=== PATIENT | male | born 1930 | race Caucasian/White ===

== ENCOUNTER 2017-10-18 00:22 | Observation (INO) | payer MEDICARE ==
[~2017-10-18] VITALS: Ht 170.2 cm; Wt 80.0 kg
[2017-10-18] VITALS (9 sets, daily range): BP systolic 134–173; BP diastolic 64–86; PULSE 63–114; RESP 16–20; TEMP 96.9–98.6; O2SAT 93–96
[~2017-10-18 00:22] MED LIST: CALA180T PO; HYDR12.56 PO; LISI40TA PO; PROS5TAB2 PO; PROT40TA PO; TERA10CA3 PO
[2017-10-18] MEDS ORDERED: FINA5TAB2 (02:04)
[2017-10-18] MEDS ORDERED: HYDR12.57 PO (02:04)
[2017-10-18] MEDS ORDERED: LISI40TA PO (02:04)
[2017-10-18] MEDS ORDERED: VERA120T3 PO (02:04)
[2017-10-18] MEDS ORDERED: TERA10CA3 PO (02:04)
[2017-10-18] MEDS ORDERED: SODIUM CHLORIDE 0.9% FLUSH 10 ML FLUSH IVF PRN (02:30)
[2017-10-18 03:13] LABS: AUTOMATED NEUTROPHIL # 7.4 TH/MM3 (1.8-7.7); BASOPHIL % 0.1 % (0.0-2.0); EOSINOPHIL # 0.1 TH/MM3 (0-0.4); EOSINOPHIL % 0.6 % (0.0-4.0); HEMATOCRIT 36.1 % (39.0-51.0); HEMOGLOBIN 12.3 GM/DL (13.0-17.0); LYMPH % 10.9 % (9.0-44.0); MEAN CELL VOLUME 90.7 FL (80.0-100.0); MEAN CORPUSCULAR HEMOGLOBIN 30.9 PG (27.0-34.0); MEAN CORPUSCULAR HGB CONC 34.1 % (32.0-36.0); MEAN PLATELET VOLUME 8.5 FL (7.0-11.0); MONO % 9.4 % (0.0-8.0); MONOCYTE # 0.9 TH/MM3 (0-0.9); PLATELET COUNT 243 TH/MM3 (150-450); RED BLOOD COUNT 3.98 MIL/MM3 (4.50-5.90); RED CELL DISTRIBUTION WIDTH 14.1 % (11.6-17.2); WHITE BLOOD COUNT 9.4 TH/MM3 (4.0-11.0)
[2017-10-18 03:26] LABS: INTERNATIONAL NORMALIZED RATIO 1.1 RATIO; PROTHROMBIN TIME - PATIENT 10.7 SEC (9.8-11.6)
[2017-10-18 03:27] LABS: BICARBONATE 26.9 MEQ/L (21.0-32.0); CALCIUM 8.8 MG/DL (8.5-10.1); CREATININE 1.07 MG/DL (0.60-1.30)
--- NOTE | 2017-10-18 03:31 | RADRPT ---
EXAM DATE/TIME: 10/18/2017 02:30 [facility] COMPARISON: No previous studies available for comparison. INDICATIONS : Shortness of breath. MEDICAL HISTORY : None. SURGICAL HISTORY : None. ENCOUNTER: Initial ACUITY: 1 day PAIN SCORE: 2/10 LOCATION: Bilateral chest FINDINGS: A single view of the chest demonstrates the lungs to be symmetrically aerated without evidence of mas s, infiltrate or effusion. The cardiomediastinal contours are unremarkable. Osseous structures are intact. CONCLUSION: No acute disease. Garret Ascencio MD on October 18, 2017 at 3:30 Board Certified Radiologist. This report was verified electronically.
[2017-10-18] MEDS ORDERED: IOHEXOL 350 MG/ML 10 ML VIAL (for RAD DIAG) IVCONTRAST ONE (04:00)
[2017-10-18] MEDS ORDERED: ONDANSETRON HCL 4 MG/2 ML VIAL IV PUSH ONE (04:15)
--- NOTE | 2017-10-18 04:26 | RADRPT ---
EXAM DATE/TIME: 10/18/2017 03:52 [facility] COMPARISON: No previous studies available for comparison. INDICATIONS : Abdomen pain IV CONTRAST: 100 cc Omnipaque 350 (iohexol) IV ORAL CONTRAST: No oral contrast ingested. RADIATION DOSE: 9.96 CTDIvol (mGy) MEDICAL HISTORY : Hypertension. Benign prostatic hyperplasia (BPH). SURGICAL HISTORY : Penile implant ENCOUNTER: Initial ACUITY: 1 day PAIN SCALE: 4/10 LOCATION: Bilateral abdomen TECHNIQUE: Volumetric scanning of the abdomen and pelvis was performed. Using automated exposure control and ad justment of the mA and/or kV according to patient size, radiation dose was kept as low as reasonably achievable to obtain optimal diagnostic quality images. DICOM format image data is available electro nically for review and comparison. FINDINGS: LOWER LUNGS: Bibasilar scarring. LIVER: Homogeneous density without lesion. There is no dilation of the biliary tree. No calcified gallston es. SPLEEN: Normal size without lesion. PANCREAS: Within normal limits. KIDNEYS: Normal in size and shape. There is no mass, stone or hydronephrosis. Left renal cyst. ADRENAL GLANDS: Within normal limits. VASCULAR: There is no aortic aneurysm. BOWEL/MESENTERY: Cyst of the sigmoid colon.. There is no free intraperitoneal air or fluid. ABDOMINAL WALL: Within normal limits. RETROPERITONEUM: There is no lymphadenopathy. BLADDER: No wall thickening or mass. REPRODUCTIVE: Penile prosthesis. INGUINAL: There is no lymphadenopathy or hernia. MUSCULOSKELETAL: Degenerative changes in left hip prosthesis. CONCLUSION: 1. Diverticulosis without diverticulitis. 2. Left renal cyst. 3. No acute inflammatory process. Garret Ascencio MD on October 18, 2017 at 4:22 Board Certified Radiologist. This report was verified electronically.
[2017-10-18] MEDS: SODIUM CHLOR 0.9% 1000 ML INJ 1,000 ML IV SCH ×2 (05:09→15:09)
[2017-10-18] MEDS ORDERED: ONDANSETRON HCL 4 MG/2 ML VIAL IV PUSH PRN (05:15)
[2017-10-18] MEDS ORDERED: SODIUM CHLORIDE 0.9% FLUSH 10 ML FLUSH IV FLUSH PRN (05:15)
--- NOTE | 2017-10-18 05:15 | PD ---
HPI Chief Complaint: GI Complaint Time Seen by Provider: 02:27 Travel History International Travel<30 days: No Contact w/Intl Traveler<30days: No Traveled to known affect area: No History of Present Illness HPI 87-year-old male presents to the emergency department by private transportation the care family for evaluation of rectal bleeding. Onset of symptoms at 1130 last evening. Patient has had several episodes subsequently with red blood per rectum tenesmus and flatus with red blood per rectum. No recent antibiotic use no pain no NSAID use and no anticoagulant therapy. No report of chest pain shortness of breath near syncope syncope or diaphoresis. Patient does have prior history of upper GI bleed from NSAID use approximately 10 years ago. PFSH Past Medical History Narrative Medical Arthritis hypertension BPH upper GI bleed penile implant knee and hip surgery; occasional alcohol use; nursing notes reviewed Arthritis: Yes Blood Disorders: No Cancer: No Diminished Hearing: No Endocrine: No Genitourinary: Yes (BPH) Hypertension: Yes Immune Disorder: No Implanted Vascular Access Dvce: Yes (penial implant) Neurologic: No Psychiatric: No Reproductive: No Respiratory: No Tetanus Vaccination: < 5 Years Influenza Vaccination: Yes Past Surgical History Genitourinary Surgery: Yes (TURP) Joint Replacement: Yes (HIP AND KNEE) Other Surgery: Yes (penial implant) Social History Alcohol Use: Yes (RARE SOCIAL- ON HOLIDAYS) Tobacco Use: No Substance Use: No Allergies-Medications (Allergen,Severity, Reaction): Coded Allergies: penicillin G (Unverified Allergy, Severe, THINKS HIS "THROAT SWELLS" LONG TIME AGO, 10/18/17) Reported Meds & Prescriptions Reported Meds & Active Scripts Active Reported Hydrochlorothiazide 12.5 Mg Cap 12.5 Mg PO DAILY Terazosin (Terazosin HCl) 10 Mg Cap 10 Mg PO HS Lisinopril 40 Mg Tab 40 Mg PO DAILY Verapamil (Verapamil HCl) 120 Mg Tab 180 Mg PO DAILY Finasteride 5 Mg Tab 5 Mg DAILY Do not crush. Review of Systems Except as stated in HPI: all other systems reviewed are Neg Physical Exam Narrative GENERAL: Well-developed well-nourished elderly male in no acute distress or respiratory distress SKIN: Warm and dry. HEAD: Normocephalic. EYES: No scleral icterus. No injection or drainage. NECK: Supple, trachea midline. No JVD or lymphadenopathy. CARDIOVASCULAR: Regular rate and rhythm without murmurs, gallops, or rubs. RESPIRATORY: Breath sounds equal bilaterally. No accessory muscle use. GASTROINTESTINAL: Abdomen soft, non-tender, nondistended. Rectal exam: Normal sphincter tone no fissure no prolapsed hemorrhoids normal sphincter tone no palpable rectal mass or hemorrhoids, red blood on exam glove heme positive MUSCULOSKELETAL: No cyanosis, or edema. BACK: Nontender without obvious deformity. No CVA tenderness. Data Data Last Documented VS Vital Signs Date Time Temp Pulse Resp B/P (MAP) Pulse Ox O2 Delivery O2 Flow Rate FiO2 10/18/17 02:04 88 16 168/77 (107) 95 Room Air 10/18/17 00:50 97.9 Orders Orders Basic Metabolic Panel (Bmp) (10/18/17 02:27) Complete Blood Count With Diff (10/18/17 02:27) Prothrombin Time / Inr (Pt) (10/18/17 02:27) Act Partial Throm Time (Ptt) (10/18/17 02:27) Type And Screen (10/18/17 02:27) Chest, Single Ap (10/18/17 02:27) Ecg Monitoring (10/18/17 02:27) Iv Access Insert/Monitor (10/18/17 02:27) Oximetry (10/18/17 02:27) Sodium Chloride 0.9% Flush (Ns Flush) (10/18/17 02:30) Orthostatic Vital Signs (10/18/17 02:27) Ct Abd/Pel W Iv Contrast(Rout) (10/18/17 ) Iohexol 350 Inj (Omnipaque 350 Inj) (10/18/17 04:00) Ondansetron Inj (Zofran Inj) (10/18/17 04:15) Admit Order (Ed Use Only) (10/18/17 ) Shank Carrier / Telemetry LORRIE.Q8H (10/18/17 05:10) Activity Oob With Assistance (10/18/17 05:10) Notify Dr: Other (10/18/17 05:10) Labs Laboratory Tests Test 10/18/17 02:40 White Blood Count 9.4 TH/MM3 Red Blood Count 3.98 MIL/MM3 Hemoglobin 12.3 GM/DL Hematocrit 36.1 % Mean Corpuscular Volume 90.7 FL Mean Corpuscular Hemoglobin 30.9 PG Mean Corpuscular Hemoglobin Concent 34.1 % Red Cell Distribution Width 14.1 % Platelet Count 243 TH/MM3 Mean Platelet Volume 8.5 FL Neutrophils (%) (Auto) 79.0 % Lymphocytes (%) (Auto) 10.9 % Monocytes (%) (Auto) 9.4 % Eosinophils (%) (Auto) 0.6 % Basophils (%) (Auto) 0.1 % Neutrophils # (Auto) 7.4 TH/MM3 Lymphocytes # (Auto) 1.0 TH/MM3 Monocytes # (Auto) 0.9 TH/MM3 Eosinophils # (Auto) 0.1 TH/MM3 Basophils # (Auto) 0.0 TH/MM3 CBC Comment DIFF FINAL Differential Comment Prothrombin Time 10.7 SEC Prothromb Time International Ratio 1.1 RATIO Activated Partial Thromboplast Time 27.5 SEC Blood Urea Nitrogen 24 MG/DL Creatinine 1.07 MG/DL Random Glucose 96 MG/DL Calcium Level 8.8 MG/DL Sodium Level 140 MEQ/L Potassium Level 3.9 MEQ/L Chloride Level 104 MEQ/L Carbon Dioxide Level 26.9 MEQ/L Anion Gap 9 MEQ/L Estimat Glomerular Filtration Rate 65 ML/MIN MDM Medical Decision Making Medical Screen Exam Complete: Yes Emergency Medical Condition: Yes Medical Record Reviewed: Yes Interpretation(s) Last Impressions Chest X-Ray 10/18/177 Signed Impressions: Service Date/Time: Wednesday, October 18, 2017 02:30 - CONCLUSION: No acute disease. Garret Ascencio MD Abdomen/Pelvis CT 10/18/17 0000 Signed Impressions: Service Date/Time: Wednesday, October 18, 2017 03:52 - CONCLUSION: 1. Diverticulosis without diverticulitis. 2. Left renal cyst. 3. No acute inflammatory process. Garret Ascencio MD CBC & BMP Diagram 10/18/17 02:40 Calcium Level 8.8 Vital Signs Date Time Temp Pulse Resp B/P (MAP) Pulse Ox O2 Delivery O2 Flow Rate FiO2 10/18/17 02:04 88 16 168/77 (107) 95 Room Air 10/18/17 00:50 97.9 90 16 134/64 (87) 95 Differential Diagnosis Rectal bleeding, internal hemorrhoids, polyp, mass, diverticulitis, colitis, intestinal AVM Narrative Course IV access obtained specimens collected and sent for resulting Imaging study ordered and results and reveals no acute process other than diverticulosis without diverticulitis Hemoglobin stable BUN and creatinine ratio not consistent with upper GI bleed suspect lower GI bleed Patient's case discussed with on-call medicine for observation admission for serial hemoglobins and GI consult as needed HemaPrompt Point of Care Internal Pos. & Neg. Controls: Passed Fecal Specimen Occult Blood: Positive Physician Communication Physician Communication Discussed with Dr. Shearer Diagnosis Primary Impression: Rectal bleeding Admitting Information Admitting Physician Requests: Observation Inés Rangel MD Oct 18, 2017 05:15
[2017-10-18] MEDS: FINASTERIDE 5 MG TAB PO SCH (08:22)
[2017-10-18] MEDS: SODIUM CHLORIDE 0.9% FLUSH 10 ML FLUSH IV FLUSH SCH ×2 (08:23→20:22)
[2017-10-18] MEDS: PANTOPRAZOLE SODIUM 40 MG VIAL IV PUSH SCH (08:23)
[2017-10-18] MEDS: LISINOPRIL 20 MG TAB PO SCH (08:23)
[2017-10-18] MEDS: HYDROCHLOROTHIAZIDE 12.5 MG CAP PO SCH (08:23)
[2017-10-18] MEDS: VERAPAMIL HCL 180 MG SUSTAINED RELEASE TAB PO SCH (08:38)
[2017-10-18 10:30] LABS: HEMATOCRIT 35.1 % (39.0-51.0); HEMOGLOBIN 11.9 GM/DL (13.0-17.0)
--- NOTE | 2017-10-18 11:03 | PD.CONS ---
HPI History of Present Illness This is a 87 year old male with hx gastric ulcer, GIB who presented for BRBPR. He started having bloody BM yesterday, bright red blood mixed in with soft stool. Denies abd pain, n/v, weight loss, black tarry stool. His last EGD and colonoscopy was [address] Lopes with finding clean based gastric ulcer; fair prep, diverticulosis, hemorrhoids. He is not on any blood thinners. Denies NSAID use. (Colleen Villa) PFSH Past Medical History UGIB HTN BPH Past Surgical History knee replacment hip replacement prostate surgery penile implant (Colleen Villa) Coded Allergies: penicillin G (Unverified Allergy, Severe, THINKS HIS "THROAT SWELLS" LONG TIME AGO, 10/18/17) Family History denies Social History denies toxic habits (Colleen Villa) Review of Systems Constitutional: DENIES: Weight loss Endocrine: DENIES: Polydipsia Eyes: DENIES: Blurred vision Ears, nose, mouth, throat: DENIES: Hearing loss Respiratory: DENIES: Cough Cardiovascular: DENIES: Chest pain Gastrointestinal: COMPLAINS OF: Bloody stools, DENIES: Abdominal pain, Black stools, Nausea, Vomiting Genitourinary: DENIES: Hematuria Musculoskeletal: DENIES: Muscle aches Integumentary: DENIES: Jaundice Hematologic/lymphatic: DENIES: Bruising Immunologic/allergic: DENIES: Eczema Neurologic: DENIES: Abnormal gait (ambulates with cane) Psychiatric: DENIES: Confusion (Colleen Villa) GI Exam Vitals I&O Vital Signs Date Time Temp Pulse Resp B/P (MAP) Pulse Ox O2 Delivery O2 Flow Rate FiO2 10/18/17 08:00 96.9 114 18 173/86 (115) 96 10/18/17 06:38 96.9 114 18 173/86 (115) 96 10/18/17 06:14 10/18/17 02:04 88 16 168/77 (107) 95 Room Air 10/18/17 00:50 97.9 90 16 134/64 (87) 95 Imaging Last Impressions Chest X-Ray 10/18/17 8198 Signed Impressions: Service Date/Time: Monday, October 18, 2017 02:30 - CONCLUSION: No acute disease. Garret Ascencio MD Abdomen/Pelvis CT 10/18/17 0000 Signed Impressions: Service Date/Time: Wednesday, October 18, 2017 03:52 - CONCLUSION: 1. Diverticulosis without diverticulitis. 2. Left renal cyst. 3. No acute inflammatory process. Garret Ascencio MD Laboratory Test 10/18/17 02:40 10/18/17 10:04 White Blood Count 9.4 TH/MM3 Red Blood Count 3.98 MIL/MM3 Hemoglobin 12.3 GM/DL 11.9 GM/DL Hematocrit 36.1 % 35.1 % Mean Corpuscular Volume 90.7 FL Mean Corpuscular Hemoglobin 30.9 PG Mean Corpuscular Hemoglobin Concent 34.1 % Red Cell Distribution Width 14.1 % Platelet Count 243 TH/MM3 Mean Platelet Volume 8.5 FL Neutrophils (%) (Auto) 79.0 % Lymphocytes (%) (Auto) 10.9 % Monocytes (%) (Auto) 9.4 % Eosinophils (%) (Auto) 0.6 % Basophils (%) (Auto) 0.1 % Neutrophils # (Auto) 7.4 TH/MM3 Lymphocytes # (Auto) 1.0 TH/MM3 Monocytes # (Auto) 0.9 TH/MM3 Eosinophils # (Auto) 0.1 TH/MM3 Basophils # (Auto) 0.0 TH/MM3 CBC Comment DIFF FINAL Differential Comment Prothrombin Time 10.7 SEC Prothromb Time International Ratio 1.1 RATIO Activated Partial Thromboplast Time 27.5 SEC Blood Urea Nitrogen 24 MG/DL Creatinine 1.07 MG/DL Random Glucose 96 MG/DL Calcium Level 8.8 MG/DL Sodium Level 140 MEQ/L Potassium Level 3.9 MEQ/L Chloride Level 104 MEQ/L Carbon Dioxide Level 26.9 MEQ/L Anion Gap 9 MEQ/L Estimat Glomerular Filtration Rate 65 ML/MIN Physical Examination HEENT: PERRL; normocephalic; atraumatic; no jaundice. CHEST: CTA, diminished CARDIAC: Regular rate and rhythm with no murmur gallop or rubs. ABDOMEN: Soft, nondistended, nontender; no hepatosplenomegaly; bowel sounds are present in all four quadrants. EXTREMITIES: No clubbing, cyanosis, mild BLE edema SKIN: Normal; no rash; no jaundice. INJECTION MOLDING PROCESS TECHNICIAN: No focal deficits; alert and oriented times three. (Colleen Villa) Assessment and Plan Plan ASSESSMENT - hematochezia - LGIB. very mild anemia hgb 12.3. prior hx GIB from bleeding ulcer, had EGD and colonoscopy 2007 with finding clean based ulcer, diverticulosis. could be diverticular bleed vs hemorrhoids vs other. PLAN - colonoscopy in am - clear liquids this afternoon - obtain consent - golytely - NPO after MN - notify GI of active bleeding - monitor HH - further recs to follow pt seen by myself and DR lyles and this note is on his behalf (Colleen Villa) Plan Patient was seen and examined, agree with above-noted, possible diverticular bleed, cannot rule out other reasons such as malignancy, plan for colonoscopy in a.m. (Leonid Lyles MD) Colleen Villa Oct 18, 2017 11:03 Leonid Lyles MD Oct 18, 2017 13:06
[2017-10-18 15:27] LABS: HEMATOCRIT 34.1 % (39.0-51.0); HEMOGLOBIN 11.6 GM/DL (13.0-17.0)
[2017-10-18] MEDS ORDERED: PEG (High)/E-LYTE SOLN 4000 ML BTL PO ONE (16:15)
--- NOTE | 2017-10-18 18:43 | HHI.HP ---
HPI Service [facility] Hospitalists Primary Care Physician Tania Johnson MD Admission Diagnosis rectal bleeding Diagnoses: Chief Complaint: Rectal bleeding Travel History International Travel<30 Days: No Contact w/Intl Traveler <30 Da: No Traveled to Known Affected Are: No History of Present Illness This is an 87-year-old male with past medical history of gastric ulcer, GI bleed who presents to [facility] with complaints of bright red blood per rectum. The patient states he had started having bloody bowel movements yesterday, bright red blood mixed in with stool. The patient denies abdominal pain, nausea, vomiting, dark tarry stools. The patient has had an EGD and colon[place] [address] Anastacio bhatia with findings of gastric ulcer, diverticulosis, hemorrhoids. Patient otherwise denies any chest pain, shortness of breath, fevers, chills. Review of Systems As per HPI, other systems reviewed by me and negative. Past Family Social History Past Medical History UGIB HTN BPH Past Surgical History knee replacment hip replacement prostate surgery penile implant Reported Medications Reported Meds & Active Scripts Active Reported Hydrochlorothiazide 12.5 Mg Cap 12.5 Mg PO DAILY Terazosin (Terazosin HCl) 10 Mg Cap 10 Mg PO HS Lisinopril 40 Mg Tab 40 Mg PO DAILY Verapamil (Verapamil HCl) 120 Mg Tab 180 Mg PO DAILY Finasteride 5 Mg Tab 5 Mg DAILY Do not crush. Allergies: Coded Allergies: penicillin G (Unverified Allergy, Severe, THINKS HIS "THROAT SWELLS" LONG TIME AGO, 10/18/17) Active Ordered Medications Current Medications Medications (Trade) Dose Ordered Sig/Sunni Route Start Time Stop Time Status Last Admin Sodium Chloride 1,000 ml @ 100 mls/hr Q10H IV 10/18/17 05:09 10/18/17 15:09 (NS Flush) 2 ml UNSCH PRN IV FLUSH 10/18/17 05:15 (NS Flush) 2 ml BID IV FLUSH 10/18/17 09:00 10/18/17 08:23 (Zofran Inj) 4 mg Q6H PRN IV PUSH 10/18/17 05:15 (Protonix Inj) 40 mg DAILY IV PUSH 10/18/17 09:00 10/18/17 08:23 (Proscar) 5 mg DAILY PO 10/18/17 09:00 10/18/17 08:22 (Microzide) 12.5 mg DAILY PO 10/18/17 09:00 10/18/17 08:23 (Hytrin) 10 mg HS PO 10/18/17 21:00 (Isoptin Sr) 180 mg DAILY PO 10/18/17 09:00 10/18/17 08:38 (Prinivil) 40 mg DAILY PO 10/18/17 09:00 10/18/17 08:23 Family History denies Social History denies toxic habits Physical Exam Vital Signs Vital Signs Date Time Temp Pulse Resp B/P (MAP) Pulse Ox O2 Delivery O2 Flow Rate FiO2 10/18/17 16:57 63 10/18/17 15:32 98.4 84 16 161/80 (107) 95 10/18/17 10:56 98.3 80 20 152/70 (97) 94 10/18/17 08:00 96.9 114 18 173/86 (115) 96 10/18/17 06:38 96.9 114 18 173/86 (115) 96 10/18/17 06:14 10/18/17 02:04 88 16 168/77 (107) 95 Room Air 10/18/17 00:50 97.9 90 16 134/64 (87) 95 Physical Exam GENERAL: This is a well-nourished, well-developed patient, in no apparent distress. SKIN: No rashes, ecchymoses or lesions. Cool and dry. HEAD: Atraumatic. Normocephalic. No temporal or scalp tenderness. EYES: Pupils equal round and reactive. Extraocular motions intact. No scleral icterus. No injection or drainage. ENT: Nose without bleeding, purulent drainage or septal hematoma. Throat without erythema, tonsillar hypertrophy or exudate. Uvula midline. Airway patent. NECK: Trachea midline. No JVD or lymphadenopathy. Supple, nontender, no meningeal signs. CARDIOVASCULAR: Regular rate and rhythm without murmurs, gallops, or rubs. RESPIRATORY: Clear to auscultation. Breath sounds equal bilaterally. No wheezes , rales, or rhonchi. GASTROINTESTINAL: Abdomen soft, non-tender, nondistended. No hepato-splenomegaly , or palpable masses. No guarding. MUSCULOSKELETAL: Extremities without clubbing, cyanosis, or edema. No joint tenderness, effusion, or edema noted. No calf tenderness. Negative Homans sign bilaterally. NEUROLOGICAL: Awake and alert. Cranial nerves II through XII intact. Motor and sensory grossly within normal limits. Five out of 5 muscle strength in all muscle groups. Normal speech. Laboratory Laboratory Tests Test 10/18/17 02:40 10/18/17 10:04 10/18/17 14:43 White Blood Count 9.4 Red Blood Count 3.98 Hemoglobin 12.3 11.9 11.6 Hematocrit 36.1 35.1 34.1 Mean Corpuscular Volume 90.7 Mean Corpuscular Hemoglobin 30.9 Mean Corpuscular Hemoglobin Concent 34.1 Red Cell Distribution Width 14.1 Platelet Count 243 Mean Platelet Volume 8.5 Neutrophils (%) (Auto) 79.0 Lymphocytes (%) (Auto) 10.9 Monocytes (%) (Auto) 9.4 Eosinophils (%) (Auto) 0.6 Basophils (%) (Auto) 0.1 Neutrophils # (Auto) 7.4 Lymphocytes # (Auto) 1.0 Monocytes # (Auto) 0.9 Eosinophils # (Auto) 0.1 Basophils # (Auto) 0.0 CBC Comment DIFF FINAL Differential Comment Prothrombin Time 10.7 Prothromb Time International Ratio 1.1 Activated Partial Thromboplast Time 27.5 Blood Urea Nitrogen 24 Creatinine 1.07 Random Glucose 96 Calcium Level 8.8 Sodium Level 140 Potassium Level 3.9 Chloride Level 104 Carbon Dioxide Level 26.9 Anion Gap 9 Estimat Glomerular Filtration Rate 65 Result Diagram: 10/18/17 1443 10/18/17 0240 Imaging Last Impressions Chest X-Ray 10/18/17 0227 Signed Impressions: Service Date/Time: Wednesday, October 18, 2017 02:30 - CONCLUSION: No acute disease. Garret Ascencio MD Abdomen/Pelvis CT 10/18/17 0000 Signed Impressions: Service Date/Time: Wednesday, October 18, 2017 03:52 - CONCLUSION: 1. Diverticulosis without diverticulitis. 2. Left renal cyst. 3. No acute inflammatory process. Garret F. Tocci, MD Caprini VTE Risk Assessment Caprini VTE Risk Assessment: Mod/High Risk (score >= 2) VTE Pharm Contraindication: Active bleeding Caprini Risk Assessment Model Point Value = 1 Point Value = 2 Point Value = 3 Point Value = 5 Age 41-60 Minor surgery BMI > 25 kg/m2 Swollen legs Varicose veins or History of unexplained or recurrent spontaneous Oral contraceptives or hormone replacement Sepsis (< 1 month) Serious lung disease, including pneumonia (< 1 month) Abnormal pulmonary function Acute myocardial infarction Congestive heart failure (< 1 month) History of inflammatory bowel disease Medical patient at bed rest Age 61-74 Arthroscopic surgery Major open surgery (> 45 min) Laparoscopic surgery (> 45 min) Malignancy Confined to bed (> 72 hours) Immobilizing plaster cast Central venous access Age >= 75 History of VTE Family history of VTE Factor V Leiden Prothrombin [id number] Lupus anticoagulant Anticardiolipin antibodies Elevated serum homocysteine Heparin-induced thrombocytopenia Other congenital or acquired thrombophilia Stroke (< 1 month) Elective arthroplasty Hip, pelvis, or leg fracture Acute spinal cord injury (< 1 month) Prophylaxis Regimen Total Risk Factor Score Risk Level Prophylaxis Regimen 0-1 Low Early ambulation 2 Moderate Order ONE of the following: *Sequential Compression Device (SCD) *Heparin 5000 units SQ BID 3-4 Higher Order ONE of the following medications: *Heparin 5000 units SQ TID *Enoxaparin/Lovenox 40 mg SQ daily (WT < 150 kg, CrCl > 30 mL/min) *Enoxaparin/Lovenox 30 mg SQ daily (WT < 150 kg, CrCl > 10-29 mL/min) *Enoxaparin/Lovenox 30 mg SQ BID (WT < 150 kg, CrCl > 30 mL/min) AND/OR *Sequential Compression Device (SCD) 5 or more Highest Order ONE of the following medications: *Heparin 5000 units SQ TID (Preferred with Epidurals) *Enoxaparin/Lovenox 40 mg SQ daily (WT < 150 kg, CrCl > 30 mL/min) *Enoxaparin/Lovenox 30 mg SQ daily (WT < 150 kg, CrCl > 10-29 mL/min) *Enoxaparin/Lovenox 30 mg SQ BID (WT < 150 kg, CrCl > 30 mL/min) AND *Sequential Compression Device (SCD) Assessment and Plan Problem List: (1) Rectal bleeding ICD Code: K62.5 - Hemorrhage of anus and rectum Status: Acute (2) BPH (benign prostatic hyperplasia) ICD Code: N40.0 - Benign prostatic hyperplasia without lower urinary tract symptoms (3) HTN (hypertension) ICD Code: I10 - Essential (primary) hypertension Assessment and Plan Place the patient observation Hemoglobin 12.0 admission dropped to 11.9 and then to 11.6. Continue to monitor CBC. GI consulted. Appreciate recommendations Clear liquids today, colonoscopy in a.m. AP after midnight. Please notify GI for active bleeding. Blood pressure seems to be stable. Continue home antihypertensive medications. Continue Flomax for BPH. DVT prophylaxis with SCDs, avoid chemoprophylaxis given active bleeding. Code Status Full code Discussed Condition With Patient, RN. Dong Pineda MD Oct 18, 2017 18:43
[2017-10-18 20:55] LABS: HEMATOCRIT 32.7 % (39.0-51.0); HEMOGLOBIN 11.3 GM/DL (13.0-17.0)
[2017-10-18] MEDS ORDERED: TERAZOSIN HCL 5 MG CAP PO SCH (21:00)
--- NOTE | 2017-10-18 21:17 | EKG ---
Date Performed: 10/18/2017 Time Performed: 02:04:31 PTAGE: 87 years EKG: Sinus rhythm POSSIBLE RIGHT VENTRICULAR HYPERTROPHY PROBABLE SEPTAL MYOCARDIAL INFARCTION PROBABLE INFERIOR MYOCA RDIAL INFARCTION ABNORMAL ECG NO PREVIOUS TRACING DOCTOR: Santino He Interpretating Date/Time 10/18/2017 21:16:24
[2017-10-19] VITALS (9 sets, daily range): BP systolic 124–155; BP diastolic 58–71; PULSE 71–90; RESP 16–20; TEMP 97.9–98.9; O2SAT 94–95
[2017-10-19] MEDS ORDERED: CHLORHEXIDINE GLUCONATE 2 % 1 PACK (2 CLOTHS) TOPICAL PRN (00:30)
[2017-10-19] MEDS ORDERED: POVIDONE IODINE 5% (ANTISEPSIS KIT) 4 APPLICATIONS EACH NARE PRN (00:30)
[2017-10-19] MEDS ORDERED: METOPROLOL TARTRATE 25 MG TAB PO PRN (00:30)
[2017-10-19] MEDS ORDERED: SODIUM CHLORID 0.9% 500 ML IV PRN (00:30)
[2017-10-19] MEDS ORDERED: LACTATED RINGER'S 1000 ML IV PRN (00:30)
[2017-10-19] MEDS: SODIUM CHLOR 0.9% 1000 ML INJ 1,000 ML IV SCH ×2 (00:40→11:08)
[2017-10-19 03:32] LABS: AUTOMATED NEUTROPHIL # 5.3 TH/MM3 (1.8-7.7); BASOPHIL % 0.1 % (0.0-2.0); EOSINOPHIL # 0.1 TH/MM3 (0-0.4); EOSINOPHIL % 1.7 % (0.0-4.0); HEMATOCRIT 31.9 % (39.0-51.0); HEMOGLOBIN 10.9 GM/DL (13.0-17.0); LYMPH % 14.2 % (9.0-44.0); MEAN CORPUSCULAR HEMOGLOBIN 30.9 PG (27.0-34.0); MEAN CORPUSCULAR HGB CONC 34.3 % (32.0-36.0); MONO % 10.7 % (0.0-8.0); MONOCYTE # 0.8 TH/MM3 (0-0.9); NEUT % 73.3 % (16.0-70.0); PLATELET COUNT 228 TH/MM3 (150-450); RED BLOOD COUNT 3.55 MIL/MM3 (4.50-5.90); RED CELL DISTRIBUTION WIDTH 13.9 % (11.6-17.2); WHITE BLOOD COUNT 7.2 TH/MM3 (4.0-11.0)
[2017-10-19 04:11] LABS: BICARBONATE 28.2 MEQ/L (21.0-32.0); CALCIUM 8.3 MG/DL (8.5-10.1); CREATININE 0.86 MG/DL (0.60-1.30)
[2017-10-19] MEDS: PANTOPRAZOLE SODIUM 40 MG VIAL IV PUSH SCH (08:16)
[2017-10-19] MEDS: FINASTERIDE 5 MG TAB PO SCH (08:16)
[2017-10-19] MEDS: SODIUM CHLORIDE 0.9% FLUSH 10 ML FLUSH IV FLUSH SCH (08:16)
[2017-10-19] MEDS: VERAPAMIL HCL 180 MG SUSTAINED RELEASE TAB PO SCH (08:17)
[2017-10-19] MEDS: HYDROCHLOROTHIAZIDE 12.5 MG CAP PO SCH (08:17)
[2017-10-19] MEDS: LISINOPRIL 20 MG TAB PO SCH (08:17)
--- NOTE | 2017-10-19 10:24 | PD.PROCEDR ---
GI Procedure PROCEDURE PERFORMED Colonoscopy with biopsy INDICATION FOR PROCEDURE Rectal bleeding PROCEDURE: The procedure, risks and benefits were discussed with Mr. Fraire and informed consent was obtained. Anesthesia sedated him with Diprivan. He was placed in the left lateral decubitus position. Colonoscopy: The Pentax videoscope was introduced through the rectum and advanced to cecum. Retroflexion was performed in the rectum. Colonic prep was fair for the most part except the cecum and right colon where patient has some solid stool may interfere with the vision of polyps ESTIMATED BLOOD LOSS: None SPECIMENS REMOVED: Sigmoid colon COMPLICATIONS: None IMPRESSION: Particular disease throughout the colon Internal hemorrhoid Ischemic colon with ulceration in the descending colon possible related to constipation biopsy was done I talked to the radiologist about the patient's CT scan he stated that the patient had some vascular disease but nothing significant that can be treated so most likely ischemia related to straining and ischemia PLAN: Clear liquid Await biopsy results Colonoscopy in 1-2 month Avoid constipation and straining Leonid Lyles MD Oct 19, 2017 10:24
--- NOTE | 2017-10-19 10:25 | HHI.GIFU ---
Subjective Remarks Patient laying in bed comfortably, deny any constipation or abdominal pain or any more rectal bleeding, tolerated prep Objective Vitals I&O Vital Signs Date Time Temp Pulse Resp B/P (MAP) Pulse Ox O2 Delivery O2 Flow Rate FiO2 10/19/17 10:00 97.6 78 18 110/57 (74) 96 10/19/17 07:19 98.4 90 16 150/70 (96) 95 10/19/17 04:20 88 10/19/17 03:49 98.9 76 18 132/64 (86) 94 10/19/17 00:23 79 10/19/17 00:06 98.5 78 17 124/58 (80) 95 10/18/17 20:00 94 10/18/17 19:58 98.6 85 17 155/71 (99) 93 10/18/17 16:57 63 10/18/17 15:32 98.4 84 16 161/80 (107) 95 10/18/17 10:56 98.3 80 20 152/70 (97) 94 I/O 10/18/17 10/18/17 10/18/17 10/19/17 10/19/17 10/19/17 07:00 15:00 23:00 07:00 15:00 23:00 Intake Total 1950 ml 300 ml Output Total 400 ml Balance 1550 ml 300 ml Intake Oral 750 ml IV Total 1200 ml Other 300 ml Output Urine Total 400 ml # Voids 1 Laboratory Laboratory Tests Test 10/18/17 14:43 10/18/17 19:45 10/19/17 03:14 Hemoglobin 11.6 11.3 10.9 Hematocrit 34.1 32.7 31.9 White Blood Count 7.2 Red Blood Count 3.55 Mean Corpuscular Volume 90.0 Mean Corpuscular Hemoglobin 30.9 Mean Corpuscular Hemoglobin Concent 34.3 Red Cell Distribution Width 13.9 Platelet Count 228 Mean Platelet Volume 8.0 Neutrophils (%) (Auto) 73.3 Lymphocytes (%) (Auto) 14.2 Monocytes (%) (Auto) 10.7 Eosinophils (%) (Auto) 1.7 Basophils (%) (Auto) 0.1 Neutrophils # (Auto) 5.3 Lymphocytes # (Auto) 1.0 Monocytes # (Auto) 0.8 Eosinophils # (Auto) 0.1 Basophils # (Auto) 0.0 CBC Comment DIFF FINAL Differential Comment Blood Urea Nitrogen 18 Creatinine 0.86 Random Glucose 93 Calcium Level 8.3 Sodium Level 145 Potassium Level 3.6 Chloride Level 110 Carbon Dioxide Level 28.2 Anion Gap 7 Estimat Glomerular Filtration Rate 84 Physical Exam HEENT: Pupils round and reactive to light; normocephalic; atraumatic; no jaundice. Throat is clear. NECK: Neck is supple, no JVD, no lymphadenopathy. CHEST: Chest is clear to auscultation and percussion. CARDIAC: Regular rate and rhythm with no murmur gallop or rubs. ABDOMEN: Soft, nondistended, nontender; no hepatosplenomegaly; bowel sounds are present in all four quadrants. EXTREMITIES: No clubbing, cyanosis, or edema. SKIN: Normal; no rash; no jaundice. CHILD PROTECTIVE SERVICES SPECIALIST: No focal deficits; alert and oriented times three. Assessment and Plan Plan Patient was seen and examined, patient is doing okay, no active bleeding, hemoglobin stable, no more complaint, had colonoscopy today IMPRESSION: Particular disease throughout the colon Internal hemorrhoid Ischemic colon with ulceration in the descending colon possible related to constipation biopsy was done I talked to the radiologist about the patient's CT scan he stated that the patient had some vascular disease but nothing significant that can be treated so most likely ischemia related to straining and ischemia PLAN: Clear liquid Await biopsy results Colonoscopy in 1-2 month Avoid constipation and straining Leonid Lyles MD Oct 19, 2017 10:25
--- NOTE | 2017-10-19 14:21 | PD.PN.STU ---
Subjective Remarks Patient reports resolution of his blood per rectum. His last bowel movement this morning was normal per report. His last bloody bm was yesterday. Feels he is ready to go home. denies shortness of breath, chest pain, dizziness, light headedness, or fatigue. Objective Vitals Vital Signs Date Time Temp Pulse Resp B/P (MAP) Pulse Ox O2 Delivery O2 Flow Rate FiO2 10/19/17 10:57 97.9 83 16 153/71 (98) 95 10/19/17 10:41 78 10/19/17 10:00 97.6 78 18 110/57 (74) 96 10/19/17 07:19 98.4 90 16 150/70 (96) 95 10/19/17 04:20 88 10/19/17 03:49 98.9 76 18 132/64 (86) 94 10/19/17 00:23 79 10/19/17 00:06 98.5 78 17 124/58 (80) 95 10/18/17 20:00 94 10/18/17 19:58 98.6 85 17 155/71 (99) 93 10/18/17 16:57 63 10/18/17 15:32 98.4 84 16 161/80 (107) 95 I/O 10/18/17 10/18/17 10/18/17 10/19/17 10/19/17 10/19/17 07:00 15:00 23:00 07:00 15:00 23:00 Intake Total 1950 ml 300 ml Output Total 400 ml Balance 1550 ml 300 ml Intake Oral 750 ml IV Total 1200 ml Other 300 ml Output Urine Total 400 ml # Voids 1 3 # Bowel Movements 1 Result Diagram: 10/19/174 10/19/174 Other Results Laboratory Tests Test 10/18/17 02:40 10/18/17 10:04 10/18/17 14:43 10/18/17 19:45 Red Blood Count 3.98 MIL/MM3 (4.50-5.90) Hemoglobin 12.3 GM/DL (13.0-17.0) 11.9 GM/DL (13.0-17.0) 11.6 GM/DL (13.0-17.0) 11.3 GM/DL (13.0-17.0) Hematocrit 36.1 % (39.0-51.0) 35.1 % (39.0-51.0) 34.1 % (39.0-51.0) 32.7 % (39.0-51.0) Neutrophils (%) (Auto) 79.0 % (16.0-70.0) Monocytes (%) (Auto) 9.4 % (0.0-8.0) Blood Urea Nitrogen 24 MG/DL (7-18) Estimat Glomerular Filtration Rate 65 ML/MIN (>89) Test 10/19/17 03:14 Red Blood Count 3.55 MIL/MM3 (4.50-5.90) Hemoglobin 10.9 GM/DL (13.0-17.0) Hematocrit 31.9 % (39.0-51.0) Neutrophils (%) (Auto) 73.3 % (16.0-70.0) Monocytes (%) (Auto) 10.7 % (0.0-8.0) Calcium Level 8.3 MG/DL (8.5-10.1) Chloride Level 110 MEQ/L (98-107) Estimat Glomerular Filtration Rate 84 ML/MIN (>89) Objective Remarks No acute distress. Regular rate and rhythm, no gallops or murmurs. Lungs clear to auscultation bilaterally throughout with no rhonchi, wheezes or rales. Abdomen non-tender, non-distended. A/P Assessment and Plan Rectal bleeding - resolved. Hemoglobin still trending downward at 10.9. Colonoscopy found no active bleeding. Per GI report he had extensive diverticular disease, internal hemorrhoids and some possible signs of ischemic colon.Biopsy taken. Will follow-up with GI as out patient. Discharge with iron supplementation and follow up with GI. Discharge Planning Fernanda Garza M3 Oct 19, 2017 14:21
[2017-10-19] MEDS ORDERED: FERR325T20 PO (15:04)
--- NOTE | 2017-10-19 15:05 | HHI.DCPOC ---
Discharge Care Plan Diagnosis: (1) Anemia (2) Rectal bleeding (3) HTN (hypertension) (4) BPH (benign prostatic hyperplasia) Goals to Promote Your Health * To prevent worsening of your condition and complications * To maintain your health at the optimal level Directions to Meet Your Goals Take your medications as prescribed Follow your dietary instruction Follow activity as directed Keep your appointments as scheduled Take your immunizations and boosters as scheduled If your symptoms worsen call your PCP, if no PCP go to Urgent Care Center or Emergency Room Smoking is Dangerous to Your Health. Avoid second hand smoke Call the 24-hour hour crisis hotline for domestic abuse at Dong Pineda MD Oct 19, 2017 15:05
[2017-10-19] MEDS ORDERED: PERI PO (15:12)
--- NOTE | 2017-10-19 15:17 | HHI.DS ---
Discharge Summary Admission Date Oct 18, 2017 at 05:11 Discharge Date: Oct 19, 2017 Admitting Diagnosis rectal bleeding (1) Rectal bleeding ICD Code: K62.5 - Hemorrhage of anus and rectum Diagnosis: Principal Status: Acute (2) BPH (benign prostatic hyperplasia) ICD Code: N40.0 - Benign prostatic hyperplasia without lower urinary tract symptoms Diagnosis: Secondary (3) HTN (hypertension) ICD Code: I10 - Essential (primary) hypertension Diagnosis: Secondary (4) Anemia ICD Code: D64.9 - Anemia, unspecified Diagnosis: Principal Status: Acute Procedures none Brief History - From Admission This is an 87-year-old male with past medical history of gastric ulcer, GI bleed who presents to [facility] with complaints of bright red blood per rectum. The patient states he had started having bloody bowel movements yesterday, bright red blood mixed in with stool. The patient denies abdominal pain, nausea, vomiting, dark tarry stools. The patient has had an EGD and colonoscopy [place] [address] Anastacio bhatia with findings of gastric ulcer, diverticulosis, hemorrhoids. Patient otherwise denies any chest pain, shortness of breath, fevers, chills. CBC/BMP: 10/19/17 0314 10/19/17 0314 Significant Findings Laboratory Tests Test 10/18/17 02:40 10/18/17 10:04 10/18/17 14:43 10/18/17 19:45 Red Blood Count 3.98 MIL/MM3 (4.50-5.90) Hemoglobin 12.3 GM/DL (13.0-17.0) 11.9 GM/DL (13.0-17.0) 11.6 GM/DL (13.0-17.0) 11.3 GM/DL (13.0-17.0) Hematocrit 36.1 % (39.0-51.0) 35.1 % (39.0-51.0) 34.1 % (39.0-51.0) 32.7 % (39.0-51.0) Neutrophils (%) (Auto) 79.0 % (16.0-70.0) Monocytes (%) (Auto) 9.4 % (0.0-8.0) Blood Urea Nitrogen 24 MG/DL (7-18) Estimat Glomerular Filtration Rate 65 ML/MIN (>89) Test 10/19/17 03:14 Red Blood Count 3.55 MIL/MM3 (4.50-5.90) Hemoglobin 10.9 GM/DL (13.0-17.0) Hematocrit 31.9 % (39.0-51.0) Neutrophils (%) (Auto) 73.3 % (16.0-70.0) Monocytes (%) (Auto) 10.7 % (0.0-8.0) Calcium Level 8.3 MG/DL (8.5-10.1) Chloride Level 110 MEQ/L (98-107) Estimat Glomerular Filtration Rate 84 ML/MIN (>89) Imaging Last Impressions Chest X-Ray 10/18/17 0227 Signed Impressions: Service Date/Time: Wednesday, October 18, 2017 02:30 - CONCLUSION: No acute disease. Garret Ascencio MD Abdomen/Pelvis CT 10/18/17 0000 Signed Impressions: Service Date/Time: Wednesday, October 18, 2017 03:52 - CONCLUSION: 1. Diverticulosis without diverticulitis. 2. Left renal cyst. 3. No acute inflammatory process. Garret Ascencio MD PE at Discharge AAox3 Clear lungs BL S1s2 RRR, no MRg abdomen soft, nt, nd, positive bowel sounds no edema in lower extremities Pt update on day of discharge The patient is status post colonoscopy. Denies abdominal pain, nausea, vomiting. Denies chest pain or shortness of breath. Vital signs stable. Hospital Course The patient was placed on outpatient observation, hemoglobin was 12 with admission trending down to 11.9 and 10.9. However rectal bleeding resolved. GI consulted. Patient was placed on clear liquids and taken for colonoscopy in the morning of 10/19. Colonoscopy showed internal hemorrhoids, ischemic colon with ulceration in the ascending colon possibly related to constipation. Biopsy was taken. Pathology results not available upon discharge. Dr. Lyles spoke to the radiologist about the patient's CT scan and he stated that the patient had some vascular disease but nothing significant that can be treated so most likely ischemia was related to straining. Dr. Lyles recommended outpatient follow-up repeat colonoscopy in 1-2 months. The patient was started on senna Colace to avoid constipation and straining. Patient was placed on clear liquid diet. Patient discharge with soft diet and in instructed to advance it as tolerated. The patient was also started on ferrous sulfate for acute and chronic posthemorrhagic anemia. Pt Condition on Discharge: Good Discharge Disposition: Discharge Home Discharge Time: <= 30 minutes Discharge Instructions DIET: Follow Instructions for: Soft Diet Additional Diet Instructions: advance diet as tolerated Activities you can perform: Regular-No Restrictions Follow up Referrals: Gastroenterology - 2 Weeks New Medications: Ferrous Sulfate (Ferosul) 325 Mg (65 Mg Iron) Tablet 325 MG PO BID@12,17 for anemia, #62 TAB Sennosides-Docusate Sodium (Gnp Senna Plus 8.6-50 mg) 8.6 Mg-50 Mg Tab 2 TAB PO DAILY for prevent constipation, #60 TAB stop taking if diarrhea Continued Medications: Finasteride (Finasteride) 5 Mg Tab 5 MG DAILY for Manage Prostate Problems, #30 TAB 0 Refills Do not crush. Hydrochlorothiazide (Hydrochlorothiazide) 12.5 Mg Cap 12.5 MG PO DAILY, #30 CAP 0 Refills Lisinopril (Lisinopril) 40 Mg Tab 40 MG PO DAILY for Blood Pressure Management, #30 TAB 0 Refills Terazosin (Terazosin) 10 Mg Cap 10 MG PO HS, #30 CAP 0 Refills Verapamil (Verapamil) 120 Mg Tab 180 MG PO DAILY, #60 TAB 0 Refills Dong Pineda MD Oct 19, 2017 15:17
[2017-10-19] MEDS ORDERED: FERROUS SULFATE 325 MG (65 MG ELEMENTAL IRON) TAB PO SCH (17:00)
[2017-10-19] MEDS ORDERED: PROPOFOL 200 MG/20 ML AMP IV ONE (18:01)
[2017-10-19] MEDS ORDERED: LIDOCAINE HCL 1% PF 5 ML SYRINGE OTHER ONE (18:01)
[2017-10-20] MEDS ORDERED: PANTOPRAZOLE SOD 40 MG DELAYED RELEASE TAB PO SCH (09:00)
[2017-10-20] MEDS ORDERED: DOCUSATE SODIUM 50 MG/SENNA 8.6 MG TAB PO SCH (09:00)
== END 2017-10-19 18:02 | disposition home or self-care (01) ==
LOC: NEPC 00:22 → NEDA 05:11 → NEDH 13:25 → NEPFCDU 15:21
PROVIDERS: ADMIT Hospitalist; ATTEND Hospitalist
DX: K52.89 Other specified noninfective gastroenteritis and colitis (principal); K62.5 Hemorrhage of anus and rectum; N40.0 Benign prostatic hyperplasia without lower urinary tract symptoms; I10 Essential (primary) hypertension; Z79.899 Other long term (current) drug therapy; R94.31 Abnormal electrocardiogram [ECG] [EKG]; K57.90 Diverticulosis of intestine, part unspecified, without perforation or abscess without bleeding; K64.8 Other hemorrhoids; K55.9 Vascular disorder of intestine, unspecified; K63.3 Ulcer of intestine; N28.1 Cyst of kidney, acquired; R06.02 Shortness of breath; D50.0 Iron deficiency anemia secondary to blood loss (chronic)
CPT/HCPCS: 00811; 45380; 71045; 74177; 80048; 85014; 85018; 85025; 85610; 85730; 86850; 86900; 86901; 88305; 93005; 96361; 96374; 96375; 96376; 99285; C9113; G0378; J2405; J7030; Q9967